=== PATIENT | female | born 1975 | race Hispanic/Latino ===

== ENCOUNTER → 2020-10-15 | Outpatient (CLI) | payer OTHER | LOC: RAD 11:25 | PROVIDERS: ATTEND Internal Medicine | DX: M79.641 Pain in right hand (principal) ==

== ENCOUNTER → 2020-10-31 | Outpatient (CLI) | payer OTHER | LOC: MAMMO 10:22 | PROVIDERS: ATTEND Internal Medicine | DX: Z12.31 Encounter for screening mammogram for malignant neoplasm of breast (principal); M89.9 Disorder of bone, unspecified | CPT/HCPCS: 77067; 77080 ==

== ENCOUNTER → 2020-11-29 | Outpatient (CLI) | payer OTHER | LOC: RAD 16:22 | PROVIDERS: ATTEND Internal Medicine Rheumatology | DX: M25.512 Pain in left shoulder (principal); M25.511 Pain in right shoulder; M79.642 Pain in left hand; M79.641 Pain in right hand; M25.562 Pain in left knee; M25.561 Pain in right knee ==

== ENCOUNTER → 2024-04-28 | Outpatient (REF) | payer BC | LOC: MAMMO 10:36 | PROVIDERS: ATTEND Internal Medicine | DX: Z12.31 Encounter for screening mammogram for malignant neoplasm of breast (principal) | CPT/HCPCS: 77067 ==

== ENCOUNTER → 2024-05-06 | Outpatient (REF) | payer BC | LOC: DX 08:25 | PROVIDERS: ATTEND Internal Medicine | DX: Z13.820 Encounter for screening for osteoporosis (principal) | CPT/HCPCS: 77080 ==